=== PATIENT | female | born 1970 | race African-American/Black ===

== ENCOUNTER 2018-10-08 09:13 | Emergency (ER) | payer BC ==
[~2018-10-08] VITALS: Ht 157.5 cm; Wt 86.2 kg
[2018-10-08] MEDS ORDERED: LOSARTAN POTASS25 MG ORAL (09:45)
[2018-10-08] MEDS ORDERED: ALBUTEROL2.5 MG/3 M INH (09:45)
[2018-10-08] MEDS ORDERED: CLARITIN5 MG ORAL (09:45)
[2018-10-08] MEDS ORDERED: IBUPROFEN600 MG ORAL (09:45)
--- NOTE | 2018-10-08 10:03 | NUR ---
ED Nurse Note: Pt came into the ER w/ complaints of abdominal pain radiating to the right mid back x2 weeks. Pt denies having trauma. Rating the pain an 8/10. Pt denies having n,v,d. A + o x4. Ambulatory. Skin warm to touch.
[2018-10-08 10:04] VITALS: BP 140/76
[2018-10-08 10:15] LABS: APPEARANCE,URINE SLIGHTLY CLOUDY; BILIRUBIN, URINE NEGATIVE (NEGATIVE); GLUCOSE, URINE (UA) NEGATIVE (NEGATIVE); KETONES,URINE NEGATIVE (NEGATIVE); LEUKOCYTE ESTERASE ,URINE 1+ (NEGATIVE); NITRITE,URINE NEGATIVE (NEGATIVE); PH,URINE 6 (4.5-8.0); PROTEIN,URINE NEGATIVE (NEGATIVE); UROBILINOGEN,URINE NORMAL MG/DL (0.0-1.0)
[2018-10-08 10:20] LABS: COLOR,URINE YELLOW
--- NOTE | 2018-10-08 10:22 | NUR ---
ED Nurse Note: Xray has been completed.
[2018-10-08 10:23] LABS: BASOPHILS % (AUTO) 1.5 % (0.0-2.0); EOSINOPHILS % (AUTO) 1.5 % (0.0-3.0); HEMATOCRIT 39.7 % (37.0-47.0); HEMOGLOBIN 12.9 G/DL (12.0-16.0); LYMPHOCYTES % (AUTO) 38.1 % (20.0-45.0); MEAN CORPUSCULAR VOLUME 90 FL (80-99); MONOCYTES % (AUTO) 8.6 % (1.0-10.0); NEUTROPHILS % (AUTO) 50.3 % (45.0-75.0); PLATELET COUNT 264 K/UL (150-450); RED CELL DISTRIBUTION WIDTH 11.4 % (11.6-14.8)
--- NOTE | 2018-10-08 10:24 | NUR ---
ED Nurse Note: Notified US of order.
[2018-10-08 10:32] LABS: ANION GAP 6 mmol/L (5-15); BLOOD UREA NITROGEN 14 mg/dL (7-18); CALCIUM 9.2 MG/DL (8.5-10.1); CARBON DIOXIDE 32 MMOL/L (21-32); CHLORIDE 102 MMOL/L (98-107); CREATININE 0.8 MG/DL (0.55-1.30); POTASSIUM 3.8 MMOL/L (3.5-5.1); SODIUM 140 MMOL/L (136-145)
[2018-10-08 10:36] LABS: ALANINE AMINOTRANSFERASE 37 U/L (12-78); ALBUMIN 4.2 G/DL (3.4-5.0); ALBUMIN/GLOBULIN RATIO 1.1 (1.0-2.7); ALKALINE PHOSPHATASE 85 U/L (46-116); ASPARTATE AMINO TRANSFERASE 23 U/L (15-37); BILIRUBIN,TOTAL 0.5 MG/DL (0.2-1.0); CREATINE KINASE 157 U/L (26-308)
--- NOTE | 2018-10-08 11:05 | NUR ---
ED Nurse Note: US at the bedside.
[2018-10-08] MEDS ORDERED: cefTRIAXone 1 GM in NS 55 ML IVPB ONE (11:30)
--- NOTE | 2018-10-08 11:54 | Diagnostic Imaging Report ---
Indication: Abdominal pain Technique: Fonseca-scale and duplex images of the upper abdomen were obtained. Doppler interrogation of the portal and hepatic veins Comparison: none Findings: Gallbladder is unremarkable, without stones, wall thickening, nor pericholecystic fluid. Sonographic Zamora's sign is negative. Common bile duct measures 3 mm in diameter. No intrahepatic biliary ductal dilatation. Liver demonstrates normal echogenicity, no focal abnormality. Portal vein and hepatic veins are patent. Pancreas is unremarkable. Spleen is unremarkable. Left kidney measures 9.9 cm in length. Right kidney measures 10.6 cm length. Both kidneys demonstrate normal echogenicity. There is no hydronephrosis. No focal abnormality . Abdominal aorta is partially obscured by bowel gas, visualized portions are non-aneurysmal . Impression: Negative Note nonvisualization of portions of the abdominal aorta
--- NOTE | 2018-10-08 11:58 | Diagnostic Imaging Report ---
Indication: Cough Technique: One view of the chest Comparison: none Findings: The heart is borderline enlarged. The lungs and pleural spaces are clear. Impression: Cardiomegaly. No acute process
[2018-10-08 12:19] VITALS: BP 142/75
--- NOTE | 2018-10-08 13:21 | Emergency Room Report ---
History of Present Illness General Chief Complaint: Abdominal Pain Source: Patient Present Illness HPI This patient complains of upper abdominal pain for the past week. She describes the pain as under her right breast. She denies recent illness. She denies fever or chills. She denies nausea or vomiting. She does not associate her symptoms with meals. She denies chest pain or shortness of breath. She denies cough or congestion. She denies lower abdominal pain. She admits to drinking alcohol over the past weekend but states she had "a couple margaritas. " She has no other complaints. Allergies: Coded Allergies: No Known Allergies (Unverified , 10/08/18) Patient History Past Medical History: HTN, asthma Social History: Reports: alcohol use; Denies: smoking, drug use Last Menstrual Period: menopause Now: No : 4 Para: 1 Reviewed Nursing Documentation: PMH: Agreed; PSxH: Agreed Nursing Documentation-PMH Hx Hypertension: Yes Hx Asthma: Yes Review of Systems All Other Systems: negative except mentioned in HPI Physical Exam Vital Signs Date Time Temp Pulse Resp B/P (MAP) Pulse Ox O2 Delivery O2 Flow Rate FiO2 10/08/18 09:39 98.1 76 16 129/82 97 Room Air 10/08/18 10:04 99 Sp02 EP Interpretation: reviewed, normal General Appearance: no apparent distress, alert, GCS 15, non-toxic Head: normocephalic, atraumatic Eyes: bilateral eye normal inspection, bilateral eye PERRL ENT: hearing grossly normal, normal pharynx, no angioedema, normal voice Neck: full range of motion, supple/symm/no masses Respiratory: chest non-tender, lungs clear, normal breath sounds, no respiratory distress, no retraction, no accessory muscle use, speaking full sentences Cardiovascular #1: regular rate, rhythm, no edema Gastrointestinal: normal bowel sounds, soft, non-distended, no guarding, no rebound, tenderness - TTP in the RUQ and epigastrium Rectal: deferred Musculoskeletal: back normal, gait/station normal, normal range of motion, non- tender Neurologic: alert, oriented x3, responsive, motor strength/tone normal, sensory intact, speech normal Psychiatric: judgement/insight normal, memory normal, mood/affect normal, no suicidal/homicidal ideation Skin: normal color, no rash, warm/dry, well hydrated Medical Decision Making Diagnostic Impression: Primary Impression: Pancreatitis Additional Impression: UTI (urinary tract infection) ER Course This patient is found to have pancreatitis. Patient's lipase is elevated. Further discussion with the patient and she doesn't drinking alcohol this weekend. She still denies that she drink much other than a few margaritas. Regardless, ultrasound of the right upper quadrant showed no evidence of choledocho cholelithiasis or liver or gallbladder abnormalities. Overall, the patient's evaluation is benign and labs are unremarkable other than an elevated lipase. Further discussion with the patient and she would prefer to treat at home rather than be admitted to the hospital. She is given close return precautions and follow-up instructions. Laboratory Tests Test 10/08/18 09:50 White Blood Count 6.0 K/UL (4.8-10.8) Red Blood Count 4.40 M/UL (4.20-5.40) Hemoglobin 12.9 G/DL (12.0-16.0) Hematocrit 39.7 % (37.0-47.0) Mean Corpuscular Volume 90 FL (80-99) Mean Corpuscular Hemoglobin 29.4 PG (27.0-31.0) Mean Corpuscular Hemoglobin Concent 32.6 G/DL (32.0-36.0) Red Cell Distribution Width 11.4 % (11.6-14.8) L Platelet Count 264 K/UL (150-450) Mean Platelet Volume 7.8 FL (6.5-10.1) Neutrophils (%) (Auto) 50.3 % (45.0-75.0) Lymphocytes (%) (Auto) 38.1 % (20.0-45.0) Monocytes (%) (Auto) 8.6 % (1.0-10.0) Eosinophils (%) (Auto) 1.5 % (0.0-3.0) Basophils (%) (Auto) 1.5 % (0.0-2.0) Urine Color Yellow Urine Appearance Slightly cloudy Urine pH 6 (4.5-8.0) Urine Specific [place] 1.020 (1.005-1.035) Urine Protein Negative (NEGATIVE) Urine Glucose (UA) Negative (NEGATIVE) Urine Ketones Negative (NEGATIVE) Urine Blood 2+ (NEGATIVE) H Urine Nitrite Negative (NEGATIVE) Urine Bilirubin Negative (NEGATIVE) Urine Urobilinogen Normal MG/DL (0.0-1.0) Urine Leukocyte Esterase 1+ (NEGATIVE) H Urine RBC 5-10 /HPF (0 - 2) H Urine WBC 5-10 /HPF (0 - 2) H Urine Squamous Epithelial Cells Many /LPF (NONE/OCC) H Urine Bacteria Few /HPF (NONE) Sodium Level 140 MMOL/L (136-145) Potassium Level 3.8 MMOL/L (3.5-5.1) Chloride Level 102 MMOL/L (98-107) Carbon Dioxide Level 32 MMOL/L (21-32) Anion Gap 6 mmol/L (5-15) Blood Urea Nitrogen 14 mg/dL (7-18) Creatinine 0.8 MG/DL (0.55-1.30) Estimate Glomerular Filtration Rate > 60 mL/min (>60) Glucose Level 99 MG/DL (74-106) Calcium Level 9.2 MG/DL (8.5-10.1) Total Bilirubin 0.5 MG/DL (0.2-1.0) Aspartate Amino Transferase (AST) 23 U/L (15-37) Alanine Aminotransferase (ALT) 37 U/L (12-78) Alkaline Phosphatase 85 U/L (46-116) Total Creatine Kinase 157 U/L (26-308) Troponin I 0.006 ng/mL (0.000-0.056) Total Protein 8.0 G/DL (6.4-8.2) Albumin 4.2 G/DL (3.4-5.0) Globulin 3.8 g/dL Albumin/Globulin Ratio 1.1 (1.0-2.7) Lipase 542 U/L (73-393) H Serum Alcohol < 3 mg/dL EKG Diagnostic Results Rate: normal Rhythm: NSR ST Segments: no acute changes Rhythm Strip Diag. Results EP Interpretation: yes Rate: 70's Rhythm: NSR, no PVC's, no ectopy CT/MRI/US Diagnostic Results CT/MRI/US Diagnostic Results : Imaging Test Ordered: RUQ US: Impression No acute findings. See official report. Last Vital Signs Date Time Temp Pulse Resp B/P (MAP) Pulse Ox O2 Delivery O2 Flow Rate FiO2 10/08/18 12:19 98.1 77 16 142/75 98 Room Air 99 Status: improved Disposition: HOME, SELF-CARE Condition: Improved Referrals: NON PHYSICIAN (PCP) Colianno,Bonita M. DO Oct 08, 2018 13:21
[2018-10-08] MEDS ORDERED: NITROFURANTOIN100 M2 ORAL (14:03)
[2018-10-08] MEDS ORDERED: ACETAMINOPHEN-1 EAC1 ORAL (14:04)
[2018-10-08] MEDS ORDERED: IBUPROFEN800 MG ORAL (14:04)
[2018-10-08 14:15] VITALS: BP 140/70
--- NOTE | 2018-10-08 14:15 | NUR ---
ER DISCHARGE NOTE: Patient is cleared to be discharged per ERMD, pt is aox4, on room air, with stable vital signs. pt was given dc and prescription instructions, pt was able to verbalize understanding, pt id band and iv site removed without complications. pt is able to ambulate with steady gait. pt took all belongings.
== END 2018-10-08 14:16 | disposition home or self-care (01) ==
LOC: EMR 10:10
DX: K85.90 Acute pancreatitis without necrosis or infection, unspecified (principal); N39.0 Urinary tract infection, site not specified; I10 Essential (primary) hypertension; N64.4 Mastodynia; I51.7 Cardiomegaly
CPT/HCPCS: 36415; 71045; 76700; 80053; 81003; 82550; 83690; 84484; 85025; 93005; 96361; 96365; 99284; G0480; J0696; 80329

== ENCOUNTER 2019-01-13 15:16 | Emergency (ER) | payer BC ==
[~2019-01-13] VITALS: Ht 157.5 cm; Wt 87.1 kg
[~2019-01-13 15:16] MED LIST: ACETAMINOPHEN-1 EAC1 ORAL; ALBUTEROL2.5 MG/3 M INH; CLARITIN5 MG ORAL; IBUPROFEN600 MG ORAL; IBUPROFEN800 MG ORAL; LOSARTAN POTASS25 MG ORAL; NITROFURANTOIN100 M2 ORAL
[2019-01-13] MEDS ORDERED: NKM (15:31)
[2019-01-13 15:40] VITALS: BP 157/80
--- NOTE | 2019-01-13 15:40 | NUR ---
ED Nurse Note: pt walked in to ER c/o Rt knee pain and swelling which lasted for 2 weeks. pain level 7/10 at this moment. pt denied trauma. pt aao x4 and ambulatory. skin clean and intact. calm and cooperative.
--- NOTE | 2019-01-13 15:50 | NUR ---
ED Nurse Note: pt went to xray with tech
--- NOTE | 2019-01-13 16:00 | NUR ---
ED Nurse Note: pt went back from xray
--- NOTE | 2019-01-13 16:28 | Diagnostic Imaging Report ---
Indication: Right knee pain Technique: 3 views of the right knee Comparison: None Findings: There is slight widening of the patellofemoral distance. This could indicate a joint effusion, although no suprapatellar opacification to suggest such is demonstrated. The joint spaces are otherwise preserved. No acute fractures. No dislocations. Impression: Possible joint effusion-correlate with clinical findings No acute process otherwise
--- NOTE | 2019-01-13 16:32 | Emergency Room Report ---
History of Present Illness General Chief Complaint: Pain Source: Patient Present Illness HPI 48-year-old female presents to the emergency department complaining of 7 out of 10 severity localized pain, swelling and intermittent stiffness to the right knee more progressive over 2 weeks. 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 Patient denies appreciable trauma or fall she denies clicking or instability of the joint. Patient denies any relief from Tylenol or Aspercreme. Patient denies any other aggravating or relieving factors. Denies paresthesias or weakness in the lower extremities. Denies calf pain. Denies fevers, chills, bruises, erythema, warmth , recent joint injections, hx of gout, or recent open wounds near to the affected joint. Allergies: Coded Allergies: No Known Allergies (Unverified , 10/08/18) Patient History Past Medical History: see triage record Past Surgical History: none Pertinent Family History: none Last Menstrual Period: hystrectomy Reviewed Nursing Documentation: PMH: Agreed; PSxH: Agreed Nursing Documentation-PMH Past Medical History: No History, Except For Hx Hypertension: Yes Hx Asthma: Yes Review of Systems All Other Systems: negative except mentioned in HPI Physical Exam Vital Signs Date Time Temp Pulse Resp B/P (MAP) Pulse Ox O2 Delivery O2 Flow Rate FiO2 01/13/19 15:27 98.1 84 16 157/80 (105) 98 Room Air Sp02 EP Interpretation: reviewed, normal General Appearance: no apparent distress, alert, GCS 15, non-toxic Head: normocephalic, atraumatic Eyes: bilateral eye normal inspection, bilateral eye PERRL ENT: hearing grossly normal, normal voice Neck: full range of motion Respiratory: lungs clear, normal breath sounds, speaking full sentences Cardiovascular #1: regular rate, rhythm Musculoskeletal: back normal, gait/station normal, normal range of motion, tender - anterior right knee. no increased laxity , negative anterior or posterior drawer signs, no palpable effusion, no erythema or warmth, no obvious deformity. FROM no clicking. Neurologic: alert, oriented x3, responsive, motor strength/tone normal, sensory intact, speech normal, grossly normal Psychiatric: judgement/insight normal Medical Decision Making PA Attestation Dr. Peña is my supervising Physician whom patient management has been discussed with. Diagnostic Impression: Primary Impression: Knee pain, right Qualified Codes: M25.561 - Pain in right knee Additional Impression: Arthritis of knee, right ER Course 48-year-old female presents to the emergency department complaining of 6 out of 10 severity localized pain, swelling and intermittent stiffness to the right knee more progressive over 2 weeks. 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 Patient denies appreciable trauma or fall she denies clicking or instability of the joint. Patient denies any relief from Tylenol or Aspercreme. Patient denies any other aggravating or relieving factors. Denies paresthesias or weakness in the lower extremities. Denies calf pain. Ddx considered but are not limited to Fracture, dislocation, contusion, Sprain/ Strain/Spasm. Vital signs: are WNL, pt. is afebrile H&PE are most consistent with musculoskeletal injury will perform imaging to r/ o fractures/dislocations. ORDERS: - X-ray Right Knee 3 views - negative for fx, Dislocation, or significant soft tissue injury, per preliminary read in ED, and signed by SUNDAY Jackson , my supervising physician has reviewed, and agrees with my interpretation. ED INTERVENTIONS: -Prince wrap applied to the right knee by internetworking technician. Pt. remains neurovascularly intact. DISCHARGE: At this time pt. is stable for d/c to home. Will provide printed patient care instructions, and any necessary prescriptions. Care plan and follow up instructions have been discussed with the patient prior to discharge. Other X-Ray Diagnostic Results Other X-Ray Diagnostic Results : X-Ray ordered: Right KNee # of Views/Limited Vs Complete: 3 View Indication: Pain EP Interpretation: Yes PA Xray: Interpretation reviewed, by supervising MD, and agrees with findings. Interpretation: no dislocation, no soft tissue swelling, no fractures Impression: No acute disease Electronically Signed by: Anat Jackson PA-C Last Vital Signs Date Time Temp Pulse Resp B/P (MAP) Pulse Ox O2 Delivery O2 Flow Rate FiO2 01/13/19 15:40 98.1 79 16 157/80 98 Room Air Disposition: HOME, SELF-CARE Condition: Stable Scripts Diclofenac Sodium (VOLTAREN) 100 Gm Gel..gram. 1 APPLIC TP Q6HR, #100 GM Prov: Anat Jackson 01/13/19 Naproxen* (NAPROXEN*) 500 Mg Tablet.dr 500 MG ORAL TWICE A DAY for 10 Days, #20 TAB Prov: Anat Jackson 01/13/19 Patient Instructions: Knee Pain, [id number] Additional Instructions: Take medications as directed. Follow up with an BUSINESS PROFESSOR in 3-5 days, even if your symptoms have resolved. If symptoms persist MRI Or PHYSICAL THERAPY may be required at the discretion of your PCP or Ortho Specialist. --Please review list of primary care clinics, if you do not already have a primary care provider who can give you an Orthopedic Referral. Return sooner to ED if new symptoms occur, or current symptoms become worse. - Please note that this Emergency Department Report was dictated using [employer] cargo inspector technology software, occasionally this can lead to erroneous entry secondary to interpretation by the dictation equipment. Anat Jackson Jan 13, 2019 16:32
--- NOTE | 2019-01-13 16:33 | NUR ---
Jonnathan medley in EDM - 01/13/19 at 1644 by JOEL ED Nurse Note: pt went to xray with tech
[2019-01-13] MEDS ORDERED: NAPROXEN500 M1 ORAL (16:34)
[2019-01-13] MEDS ORDERED: VOLTAREN100 G1 TP (16:34)
[2019-01-13 16:53] VITALS: BP 157/80
--- NOTE | 2019-01-13 16:53 | NUR ---
ER DISCHARGE NOTE: Patient is cleared to be discharged per ERMD, pt is aox4, on room air, with stable vital signs. pt was given dc and prescription instructions, pt was able to verbalize understanding, pt id band removed without complications. pt is able to ambulate with steady gait. pt took all belongings.
== END 2019-01-13 16:53 | disposition home or self-care (01) ==
LOC: EMR 16:10
DX: M25.561 Pain in right knee (principal); M17.11 Unilateral primary osteoarthritis, right knee; I10 Essential (primary) hypertension
CPT/HCPCS: 99283